=== PATIENT | female | born 1945 | race Caucasian/White ===

== ENCOUNTER 2020-09-24 10:00 | Emergency (ER) | payer MEDICARE, SELFPAY ==
[2020-09-24 10:21] VITALS: BP 172/78; PULSE 78; RESP 16; TEMP 36.4; O2SAT 99
--- NOTE | 2020-09-24 10:49 | ED.FEMALEGU ---
HPI - Female Genitourinary General Chief complaint: Urogenital-Female Stated complaint: UTI Time Seen by Provider: 09/24/20 10:22 Source: patient and RN notes reviewed Mode of arrival: ambulatory Limitations: no limitations History of Present Illness HPI Narrative: Patient presents today complaining of a 2-day history of dysuria, possible hematuria. Denies abdominal pain, back pain, fever, nausea or vomiting, weakness, chills or sweats. She has tried no medication for her symptoms prior to arrival. She was treated with Bactrim for UTI last month and states it did resolve completely. MD elicited complaint: dysuria Related Data Home Medications Medication Instructions Recorded Confirmed quinapril [Accupril] 20 mg PO DAILY 09/24/20 09/24/20 verapamil [Calan] 120 mg PO DAILY 09/24/20 09/24/20 Allergies Allergy/AdvReac Type Severity Reaction Status Date / Time No Known Allergies Allergy Mild Verified 09/24/20 10:15 Review of Systems Review of Systems: Narrative: CONSTITUTIONAL: Denies body aches, fever, chills, or sweats. EYES: Denies visual changes, redness, or discharge. ENT: Denies rhinorrhea, congestion, sore throat, or otalgia. CARDIOVASCULAR: Denies chest pain, palpitations, or edema. RESPIRATORY: Denies cough or dyspnea. GASTROINTESTINAL: Denies abdominal pain, nausea, vomiting, or diarrhea. GENITOURINARY: + Dysuria, possible hematuria SKIN: Denies rash, itching, or wounds. MUSCULOSKELETAL: Denies back pain, joint pain, or myalgia. NEUROLOGIC: Denies headache, numbness, tingling, or weakness. PSYCH: Denies depression or anxiety. [facility] Past Medical History Medical History (Updated 09/24/20 @ 13:36 by Meme Carey, [facility], ) Cataracts, bilateral Hypertension Social History Social History Gender identity (if verbalized by the patient): Female Comments At time of signature, I have reviewed and agree with nursing past medical, surgical, social and family history unless otherwise noted. Please see nursing chart for further information. There is no relevant family history pertinent to the presenting complaint Exam Narrative: Exam Narrative: GENERAL: Well-appearing, well-nourished, and in no acute distress. HEAD: Normocephalic, atraumatic. EYES: EOMI. No redness or drainage. Conjunctivae normal. ENT: Mucous membranes pink and moist. NECK: Normal AROM. CHEST: No respiratory distress. Clear to auscultation. HEART: Regular rate and rhythm. No murmur appreciated. Normal peripheral pulses. ABDOMEN: Soft, nontender, nondistended, normal active bowel sounds.-CVAT MUSCULOSKELETAL: No bony tenderness. EXTREMITIES: Normal range of motion. No edema. SKIN: Warm, dry, no rash. Capillary refill normal. Normal skin turgor. NEURO: No focal deficits. Alert and oriented x3. Gait steady. PSYCH: Normal affect. No signs of depression or anxiety. Course Vital Signs Vital signs: Vital Signs Temperature 97.6 F 09/24/20 10:21 Pulse Rate 78 09/24/20 10:21 Respiratory Rate 16 09/24/20 10:21 Blood Pressure 172/78 H 09/24/20 10:21 Pulse Oximetry 99 09/24/20 10:21 Temperature 97.6 F 09/24/20 10:21 Pulse Rate 78 09/24/20 10:21 Respiratory Rate 16 09/24/20 10:21 Blood Pressure 172/78 H 09/24/20 10:21 Pulse Oximetry 99 09/24/20 10:21 Reviewed. Pt has been instructed to follow up with her PCP regarding her elevated blood pressure today. MDM - Female Genitourinary Differential Diagnosis Differential diagnosis: Likely urinary tract infection, vaginitis and cystitis Lab Data Attestation: I reviewed the patient's lab results. Labs: Urine Glucose Negative Reference Range: Negative Urine Bilirubin Negative Reference Range: Negative Urine Ketone Negative Reference Range: Negative Urine
== END 2020-09-24 10:54 | disposition home or self-care (01) ==
PROVIDERS: Emergency Provider Nurse Practitioner
DX: N30.01 Acute cystitis with hematuria (principal); H26.9 Unspecified cataract; I10 Essential (primary) hypertension
CPT/HCPCS: 81003; 87086; 99213; G0463

== ENCOUNTER 2022-10-01 02:53 | Day surgery (SDC) | payer MEDICARE, SELFPAY ==
[2022-09-17 13:21] VITALS: BMI 24.3
--- NOTE | 2022-09-30 14:22 | PM.HPGS ---
History of Present Illness History of Present Illness Consent: Risks, benefits, and alternatives have been discussed and questions answered. Patient agrees to proceed with procedure. Chief complaint: hx of colon polyps Narrative: Radha [place] is a 77 year old female referred for colon cancer screening. She has a history of colon polyps. Her last colonoscopy was 5 years ago. No polyps were seen at that time. Review of Systems Review of Systems: All systems reviewed & are unremarkable except as noted in HPI and below PMFSH Past Medical History Medical History Cataracts, bilateral Hypertension Social History Social History Smoking status: Never smoker Substance use type: does not use Living arrangements: with family Gender identity (if verbalized by the patient): Female Spiritual care concerns: No Meds Home Medications and Allergies Home Medications Medication Instructions Recorded Confirmed Type verapamil 120 mg tablet 120 mg PO DAILY 09/24/20 09/17/22 History cholecalciferol (vitamin D3) 25 25 mcg PO DAILY 09/17/22 09/17/22 History mcg (1,000 unit) tablet (Vitamin D3) olmesartan 20 mg tablet 20 mg PO DAILY 09/17/22 09/17/22 History Allergies Allergy/AdvReac Type Severity Reaction Status Date / Time No Known Allergies Allergy Mild Verified 10/01/22 08:05 Exam Const: General: alert Orientation/consciousness: patient oriented x3 Resp: Auscultation: clear to auscultation bilaterally Cardio: Rhythm: regular rhythm GI: GI Palp: Yes Soft to palpation and No Tenderness to palpation present (GI) Neuro: General: patient oriented x3 Assessment and Plan Assessment and plan (1) Colon cancer screening: Code(s): Z12.11 - Encounter for screening for malignant neoplasm of colon Status: Acute Assessment and Plan: Colonoscopy with possible biopsy or polypectomy or cautery or injection of substances.
[2022-10-01 08:07] VITALS: BP 148/83; PULSE 78; RESP 18; TEMP 36.4; O2SAT 100
[2022-10-01] MEDS: LACTATED RINGERS 1,000 ML 150 ML IV CONT (08:20)
--- NOTE | 2022-10-01 08:40 | P.PNAN_ITS ---
Anes - Initial Pre Proc Eval Procedure: Operation Date: 10/01/22 09:00 Proposed Procedures p Colonoscopy - Richard Frausto MD Date/Time: 10/01/22 08:40 Surgeon: Richard Frausto MD Pre Op Diagnosis: hx of colon polyps Patient Data Age: 77 Gender: F Height: 1.68 m Weight: 67.8 kg Last Vital Signs Temp 97.5 F L 10/01/22 08:07 Pulse 78 10/01/22 08:07 Resp 18 10/01/22 08:07 BP 148/83 H 10/01/22 08:07 Pulse Ox 100 10/01/22 08:07 O2 Del Method Room Air 10/01/22 08:07 Allergies Allergy/AdvReac Type Severity Reaction Status Date / Time No Known Allergies Allergy Mild Verified 10/01/22 08:05 Home Medications Medication Instructions Recorded Confirmed Type verapamil 120 mg tablet 120 mg PO DAILY 09/24/20 09/17/22 History cholecalciferol (vitamin D3) 25 25 mcg PO DAILY 09/17/22 09/17/22 History mcg (1,000 unit) tablet (Vitamin D3) olmesartan 20 mg tablet 20 mg PO DAILY 09/17/22 09/17/22 History Patient hx anesthesia problems: none Family hx anesthesia problems: none Results Review: All pre-operative results and documents have been reviewed as part of the pre- operative evaluation. [facility] Past Medical History Medical History Cataracts, bilateral Hypertension Social History Social History Smoking status: Never smoker Substance use type: does not use Living arrangements: with family Gender identity (if verbalized by the patient): Female Spiritual care concerns: No Anes - Eval Final PreProcedure Day of Procedure 10/01/22 08:40 Patient weight: normal Heart: regular rate and rhythm Lungs: clear to auscultation Airway: Mallampati scale class II Neurological: alert and oriented Last oral intake: >/= 8 hours ASA classification: II Emergent: no Anesthetic plan: proceed Anesthesia type and monitoring: general GIVS and standard monitoring Results Review: All pre-operative results and documents have been reviewed as part of the pre- operative evaluation. Informed Consent: The patient's anesthetic plan and its attendant risks and benefits were discussed with the patient/family/POA. Questions were solicited and answers provided to the satisfaction of the patient/family/POA.
[2022-10-01 09:08] VITALS: BP 99/63; PULSE 73; RESP 20; O2SAT 100
[2022-10-01 09:18] VITALS: BP 120/70; BP 151/83; PULSE 69; PULSE 76; RESP 20; RESP 21; O2SAT 100
== END 2022-10-01 09:40 | disposition home or self-care (01) ==
PROVIDERS: PCP Internal Medicine; Visit Provider Internal Medicine Gastroenterology
PROC: 0DJD8ZZ Inspection of Lower Intestinal Tract, Via Natural or Artificial Opening Endoscopic (ICD-10-PCS; CPT 45378; principal; 2022-10-01 09:00)
DX: Z12.11 Encounter for screening for malignant neoplasm of colon (principal); K64.8 Other hemorrhoids; Z86.010 Personal history of colon polyps; I10 Essential (primary) hypertension
CPT/HCPCS: G0105; J2704; J7120